=== PATIENT | male | born 1950 | race Caucasian/White ===

== ENCOUNTER 2017-04-21 06:00 | Day surgery (SDC) | payer OTHER, MEDICARE ==
[~2017-04-21] VITALS: Ht 182.9 cm; Wt 124.7 kg
[~2017-04-21 06:00] MED LIST: ADULT LOW DOSE81 MG PO; AMLODIPINE BESYL5 MG PO; BENADRYL25 MG PO; CYMBALTA30 MG PO; CYMBALTA60 MG PO; GABAPENTIN600 MG PO; HYDROCHLOROTHIA25 MG PO; LANTUS SOL100 UNIT/1 SUB-Q; LOSARTAN POTASS50 MG PO; METFORMIN HCL1000 MG PO; PAIN RELIEF500 MG PO; SIMVASTATIN20 MG PO; VITAMIN D1000 UNI1 PO
--- NOTE | 2017-04-21 09:03 | NUR ---
04/21/17 0903 Melanie Rogers 0850- AT BEDSIDE. 0900- AT BEDSIDE.PT AWAKE, PO OK, SAO2 RA 95%.
--- NOTE | 2017-04-21 13:43 | OR ---
[facility] [address] [place], [place] [address] Signed DATE OF OPERATION: SURGEON: Bharath Park MD PREOPERATIVE DIAGNOSES: 1. History of colonic polyps, last colonoscopy 02/12/2016. 2. Chronic alcoholism, in remission. POSTOPERATIVE DIAGNOSES: Recurrent or persistent polyp of proximal ascending colon (complex). PROCEDURE: Total colonoscopy to cecum with complex resection of proximal ascending colon polyp (hot snare, cold morcellation, hot morcellation, mucosal lift, and hemoclip mucosal apposition, prolonged, complicated, and difficult). ANESTHESIA: Propofol infusion, Curt Martins CRNA. INDICATION: A 66-year-old white man is in remission from chronic alcoholism, has other medical issues. He has undergone colonoscopy in the past, last in 2015, where he was noted to have several polyps. He has also had a complex polyp approximately ascending colon, which was excised and marked with Endomark tattoo material. The polyps were tubulovillous adenomas and tubular adenomas. He was admitted at this time to undergo surveillance colonoscopy. Understand the risks of bleeding, infection, and perforation. Propofol infusional sedation is needed as his last procedure was rather prolonged, complicated, and difficult on the basis of his medications, alcohol abuse, and so on. FINDINGS: The prep was adequate, but not great. Complete colonoscopy was undertaken of the cecum. Abdominal wall stabilization was required to obtain full intubation of the cecum. He did have a complex linear polypoid lesion at the area of prior Endomark tattoo dye injection in the proximal ascending colon. This was excised completely with a combination of techniques, which was prolonged, complicated, and difficult. The remaining colon was without signs of recurrent polyp. DESCRIPTION OF PROCEDURE: The patient was brought to the endoscopy suite, placed in lateral decubitus position, given intravenous sedation with propofol infusional technique by the nurse order entry technician with full cardiopulmonary monitoring. Digital rectal examination was normal. Electronically Signed By: BHARATH PARK MD 04/21/17 1343 PATIENT NAME: CINDY WALSH OPERATIVE REPORT DATE OF : 48 PHYSICIAN: BHARATH PARK MD REPORT #: [id number] REPORT IS CONFIDENTIAL AND NOT TO BE RELEASED WITHOUT AUTHORIZATION [facility] [address] [place], [place] [address] Signed An Olympus video colonoscope was passed in the rectum and manipulated throughout the colon. Passage beyond hepatic flexure, required abdominal wall stabilization, but ultimately it was accomplished and passage to the cecum was noted. The prep was adequate, but not great. Irrigation was undertaken as necessary. The ileocecal valve appeared normal. Scope was withdrawn in a short distance from it in the proximal ascending colon and was area of Endomark tattoo dye injection with a recurrent or persistent broad polyp on the mucosal fold. A combination of techniques was used to excise the polyp fully, this started with a submucosal injection technique with Endomark tattoo dye (mucosal lift technique). Hot snare polypectomy was then undertaken judiciously. The friability of the polyp allowed for the snare to pass through without cautery on numerous occasions. There was still some mucosal polypoid material and therefore, cold morcellation polypectomy was undertaken to obliterate this more. Hot morcellation biopsy also was used to clean up the area. Ultimately, the polyp appeared to be completely obliterated. Mucosal defect was reapproximated with two hemoclips and then a Alvarez Net was used to gather the shards of polypoid material. The scope was then withdrawn and remaining colon appeared to be unremarkable. The scope was removed and the patient was taken to recovery room in good condition. CONCLUDING DIAGNOSES: Persistent polyp of proximal ascending colon, not likely malignant, but pathology is pending. We would recommend repeat colonoscopy in one year, sooner if symptoms should develop. Provided the mucosal resection showed benign polyp rather than malignancy or dysplasia. If either of the aforementioned findings are noted then, intervention much sooner would be appropriate. MD YOON Alcantar/SWETAL /[id number] cc: Frankie Patel DO Electronically Signed By: BHARATH PARK MD 04/21/17 1343 PATIENT NAME: CINDY WALSH OPERATIVE REPORT DATE OF : 48 PHYSICIAN: BHARATH PARK MD REPORT #: [id number] REPORT IS CONFIDENTIAL AND NOT TO BE RELEASED WITHOUT AUTHORIZATION
== END 2017-04-21 09:20 | disposition home or self-care (01) ==
LOC: OPS 06:00 → DS 06:00 → OPS 06:45 → DS 08:30 → OPS 08:30
PROVIDERS: Surgery
PROC: 3E0H8GC Introduction of Other Therapeutic Substance into Lower GI, Via Natural or Artificial Opening Endoscopic (ICD-10-PCS; 2017-04-21)
PROC: 0DBK8ZX Excision of Ascending Colon, Via Natural or Artificial Opening Endoscopic, Diagnostic (ICD-10-PCS; principal; 2017-04-21 06:45)
DX: Z12.11 Encounter for screening for malignant neoplasm of colon (principal); D12.2 Benign neoplasm of ascending colon; F10.21 Alcohol dependence, in remission; E78.5 Hyperlipidemia, unspecified; K21.9 Gastro-esophageal reflux disease without esophagitis; F41.9 Anxiety disorder, unspecified; E11.9 Type 2 diabetes mellitus without complications; F32.9 Major depressive disorder, single episode, unspecified; E66.01 Morbid (severe) obesity due to excess calories; G47.30 Sleep apnea, unspecified; Z87.891 Personal history of nicotine dependence; Z86.010 Personal history of colon polyps; Z99.81 Dependence on supplemental oxygen; Z68.37 Body mass index [BMI] 37.0-37.9, adult; Z98.890 Other specified postprocedural states; Z79.899 Other long term (current) drug therapy
CPT/HCPCS: 88305; 99156; 99157; J2370; J2704; J7120

== ENCOUNTER 2018-05-25 05:55 | Day surgery (SDC) | payer OTHER, MEDICARE ==
[~2018-05-25] VITALS: Ht 182.9 cm; Wt 127.0 kg
[~2018-05-25 05:55] MED LIST changes: +AMITRIPTYLINE100 MG PO
--- NOTE | 2018-05-25 08:46 | NUR ---
05/25/18 0846 Ashtyn Hogan 0836- PT ARRIVES TO PACU AROUSABLE TO VOICE, INSTANTLY BACK TO SLEEP. RESP EVEN AND UNLABORED. OXYGEN SAT HIGH 90'S TO 100% ON 6L VIA MASK. 0839- PT IS TRYING TO TURN HIMSELF TO HIS BACK. PT ASSISTED WITH THIS. OXYGEN TURNED OFF. OXYGEN SAT MID TO HIGH 90'S ON RA. 0842- CO2 MONITOR PLACED PT REMAINS SLEEPY AND HAS A HX OF SLEEP APNEA.
--- NOTE | 2018-05-26 11:06 | OR ---
[facility] [address] [place], [place] [address] Signed DATE OF OPERATION: 05/25/2018 SURGEON: Bharath Park MD PREOPERATIVE DIAGNOSIS: History of villoglandular polyp of cecal area 2018 with high-grade dysplasia. POSTOPERATIVE DIAGNOSES: 1. Persistent polypoid tissue at proximal ascending colon. 2. Distant polyps x2, hepatic flexure. PROCEDURE: 1. Total colonoscopy to cecum with hot snare polypectomy and ablation of proximal ascending colon polyp. 2. Cold snare polypectomy x1, hepatic flexure, and cold morcellation polypectomy x1, hepatic flexure. ANESTHESIA: Intravenous sedation, propofol infusion. Arin Perez CRNA. DESCRIPTION OF PROCEDURE: The patient was brought to the endoscopy suite and placed in lateral decubitus position given intravenous sedation by the rail car unloader with propofol infusional technique. Full cardiopulmonary monitoring was maintained. Given his sleep apnea, a fair amount of effort was needed to maintain a good airway and ventilation. Digital rectal examination showed poor tone, but no overt signs of incontinence. The Olympus video colonoscope was passed in the rectum and manipulated throughout the colon. Passage beyond hepatic flexure were slightly challenging, but ultimately was accomplished to the cecum itself. Irrigation was undertaken. The prep was adequate, but not perfect. Modification in the future will be needed. The scope was withdrawn and in the proximal ascending colon was area of prior tattoo marking and a linear appearing polyp. A hot snare polypectomy excision was undertaken and the tissue behind the fold showed more similar such tissue. This was excised with hot morcellation technique as well as cold biopsy technique as well. Ablation of the lesion was accomplished. Good specimens were obtained. Irrigation was undertaken showing no sign of bleeding. The scope was withdrawn and a small polyp at the hepatic flexure was identified and excised with cold snare polypectomy technique. Further withdrawal showed another small polyp excised at this time with cold morcellation technique. Further withdrawal of scope showed no other concerning lesions. It was Electronically Signed By: BHARATH PARK MD 05/26/18 1106 PATIENT NAME: CINDY WALSH OPERATIVE REPORT DATE OF : 48 REPORT #: [id number] PHYSICIAN: BHARATH PARK MD PCP: RAMONA GERARDO PA-C REPORT IS CONFIDENTIAL AND NOT TO BE RELEASED WITHOUT AUTHORIZATION [facility] [address] [place], [place] [address] Signed noted that in the rectosigmoid was a bright, reddish, small polyp, but was not seen upon return of the scope, likely to be seen in the future. He was taken to recovery room in good condition. CONCLUDING DIAGNOSIS: Persistence of proximal ascending colon polyp. Previous villoglandular adenoma with high-grade dysplasia. Ablative efforts have been undertaken. Right colectomy would be a consideration. However, he does have significant comorbidities and if an endoscopic control approach was possible would be preferable obviously. We will await pathology report in particular to see if there is any sign of invasion to mandate colectomy. Would recommend repeat colonoscopy in 6 months given the findings at the proximal ascending colon. Recommend also a more lengthy low-fiber interval for bowel prepping. MD YOON Alcantar/KHADIJAH /[id number] cc: Ramona Gerardo PA-C Copies: RAMONA GERARDO PA-C ~ Electronically Signed By: BHARATH PARK MD 05/26/18 1106 PATIENT NAME: CINDY WALSH OPERATIVE REPORT DATE OF : 48 REPORT #: [id number] PHYSICIAN: BHARATH PARK MD PCP: RAMONA GERARDO PA-C REPORT IS CONFIDENTIAL AND NOT TO BE RELEASED WITHOUT AUTHORIZATION
--- NOTE | 2018-05-26 13:15 | EKG ---
[facility] [address] [facility] [place] [address] Signed Normal sinus rhythm Low voltage QRS Possible Anterolateral infarct (cited on or before 03-APR-2017) Abnormal ECG When compared with ECG of 03-APR-2017 11:48, VA interval has decreased Questionable change in initial forces of Lateral leads Confirmed by JONNY GUERRERO MD ([id number]) on 05/26/2018 1:15:22 PM Electronically Signed By: JONNY GUERRERO MD 05/26/18 1315 PATIENT NAME: NICOCINDY CHAPIN Electrocardiogram DATE OF : 48 PHYSICIAN: JONNY GUERRERO MD REPORT #: [id number] REPORT IS CONFIDENTIAL AND NOT TO BE RELEASED WITHOUT AUTHORIZATION
== END 2018-05-25 09:15 | disposition home or self-care (01) ==
LOC: DS 05:55 → OPS 05:55 → DS 06:45 → OPS 09:15
PROVIDERS: Surgery
PROC: 0D5K8ZZ Destruction of Ascending Colon, Via Natural or Artificial Opening Endoscopic (ICD-10-PCS; 2018-05-25)
PROC: 0DBL8ZZ Excision of Transverse Colon, Via Natural or Artificial Opening Endoscopic (ICD-10-PCS; principal; 2018-05-25 06:45)
DX: D12.2 Benign neoplasm of ascending colon (principal); D12.3 Benign neoplasm of transverse colon; I12.9 Hypertensive chronic kidney disease with stage 1 through stage 4 chronic kidney disease, or unspecified chronic kidney disease; E11.22 Type 2 diabetes mellitus with diabetic chronic kidney disease; N18.9 Chronic kidney disease, unspecified; K21.9 Gastro-esophageal reflux disease without esophagitis; E66.9 Obesity, unspecified; F41.9 Anxiety disorder, unspecified; E78.5 Hyperlipidemia, unspecified; E11.42 Type 2 diabetes mellitus with diabetic polyneuropathy; G47.30 Sleep apnea, unspecified; F17.210 Nicotine dependence, cigarettes, uncomplicated; F17.220 Nicotine dependence, chewing tobacco, uncomplicated; Z79.899 Other long term (current) drug therapy; Z79.82 Long term (current) use of aspirin; Z79.4 Long term (current) use of insulin; Z68.37 Body mass index [BMI] 37.0-37.9, adult; Z79.84 Long term (current) use of oral hypoglycemic drugs; Z86.010 Personal history of colon polyps; Z99.89 Dependence on other enabling machines and devices
CPT/HCPCS: 93005; 93010; J2250; J2704; J3010; J7120

== ENCOUNTER 2023-09-20 06:57 | Day surgery (SDC) | payer OTHER ==
[2023-09-13 14:38] VITALS: BP 120/75
[~2023-09-20] VITALS: Ht 182.9 cm; Wt 111.4 kg
[~2023-09-20 06:57] MED LIST changes: +LACTATED RINGER'S 1,000 ML IV SCH; +LANTUS100 UNITS/ SUB-Q; +TRAMADOL HCL50 MG PO
[2023-09-20] MEDS ORDERED: IBLOOD GLUCOSE TEST STRIP 1 EA TEST VI PRN (07:00)
[2023-09-20] MEDS ORDERED: LIDOCAINE HCL 1% 5 ML SDV INJ ONE (07:00)
[2023-09-20 07:06] VITALS: BP 128/73
[2023-09-20] MEDS ORDERED: JARDIANCE25 MG PO (07:09)
[2023-09-20] MEDS ORDERED: propofoL 200 MG/20 ML VIAL ONE (08:13)
[2023-09-20] MEDS ORDERED: LIDOCAINE HCL 2% 5 ML SDV ONE (08:13)
[2023-09-20] MEDS ORDERED: KETAMINE in NS 50 MG/5 ML SYR ONE (08:41)
[2023-09-20] MEDS ORDERED: fentaNYL citrate 100 MCG/2 ML VIAL ONE (08:46)
--- NOTE | 2023-09-20 09:11 | NUR ---
09/20/23 0911 Marita Posada 0905-PATIENT ARRIVED TO PACU ON RA RR EVEN. PATIENT REACTIVE TO VERBAL STIMULI DENIES PAIN OR NAUSEA. ORIENTED TO PACU. REPOSITIONS SELF IN BED. HOB ELEVATED. SINUS RHYTHM. IVF INFUSING. ENCOURAGED TO PASS GAS
[2023-09-20 09:30] VITALS: BP 122/75
--- NOTE | 2023-09-20 10:43 | OR ---
[facility] [address] [place], [place] [address] Signed DATE OF OPERATION: 09/20/2023 SURGEON: Anne Shell MD PREOPERATIVE DIAGNOSES: 1. Personal history of colonic polyps. 2. Tattoo in right colon. 3. Mother with colon cancer in her 50s. POSTOPERATIVE DIAGNOSES: 1. Long redundant colon. 2. Moderate internal hemorrhoids. 3. Moderately poor bowel prep. PROCEDURE: Colonoscopy without biopsies to the hepatic flexure. ESTIMATED BLOOD LOSS: None. 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 He has been through four colonosc[address] Dr. Blanton. He has had multiple adenomatous polyps removed. There was a large tubulovillous adenomatous polyp removed out of the right colon. The tattoo remains in the right colon. He said he is doing fine currently without any specific lower GI complaints. His mother had been diagnosed and of colon cancer in her 50s. Cindy had a gastric band placed in 2006. He started it about 376 pounds and is down to around 253 pounds. Nevertheless, he remains a very large man and with very large protuberant abdomen. There was also some concern about his thrombocytopenia related to alcohol use. There was some talk he would have an ultrasound of his liver performed. We can see the last colonoscopy was in 2019 at the age of 67. He came to the office by himself. He has to use a four wheeled walker because of his diabetic peripheral neuropathy. He also has to wear gloves on his hand for the same reason. He said he can still drive. He told me his would help take him home after the procedure. In the office, I had given him a pamphlet on colonoscopy. We had reviewed the nature of the test. There is risk including, but not limited to gas bloating, crampy abdominal pain, bleeding, perforation requiring surgery, and missed diagnosis. We also reviewed the written instructions for bowel prep line by line. He recognized that our bowel prep is very similar to what Dr. Blanton uses as well. Being a registered nurse, he is very familiar with Dulcolax and MiraLAX. We had Electronically Signed By: ANNE SHELL MD 09/20/23 1043 PATIENT NAME: CINDY WALSH OPERATIVE REPORT DATE OF : 48 REPORT #: [id number] PHYSICIAN: ANNE SHELL MD PCP: CHARLES CARRASCO MD REPORT IS CONFIDENTIAL AND NOT TO BE RELEASED WITHOUT AUTHORIZATION [facility] [address] [place] [id number] Signed reviewed his medications very carefully as well. He has always required monitored anesthesia care and that is true in this setting given his rather large size and advanced medical issues. He understands an adult person has to take him home afterwards. He had expressed understanding and wished to proceed. DESCRIPTION OF PROCEDURE: Cindy was taken into our endoscopy suite and placed in the left lateral decubitus position. He was initially given monitored anesthesia care with propofol infusion per our nurse dye colorist formulator. A digital rectal exam was performed. No external hemorrhoids. He had good sphincter tone. There were no masses. I could barely touch the bottom of his prostate gland given his size. The adult colonoscope was introduced and we took a few minutes to suction out liquid stool from the rectum. We went up to a long and very redundant left colon. We had to add ketamine along with fentanyl to our propofol infusion. That did help him. We eventually made it to the hepatic flexure. We had three nurses applying abdominal compression in various parts of his rather large protuberant abdomen. Unfortunately, we never could make scope any further. Given all the stool on the bed and his very large size, we elected not to rotate him during this current procedure. The scope was then slowly withdrawn. We saw no pathology throughout the colon including diverticulosis. Once in the rectum, the scope was retroflexed and he does have moderate internal hemorrhoid columns. After this, the gas was suctioned out and the colonoscope removed. Cindy tolerated the procedure quite well. RECOMMENDATIONS: I will see Cindy back in my office in 7 to 14 days to review his results. He will always need a full gallon of polyethylene glycol in the future. He will always need monitored anesthesia care. He is going to need a barium enema to evaluate the right colon on this occasion. Given his previous personal history of adenomatous polyps, he is going to need to stay on at least the five year rotation. MD ABRAHAM Campos/SWETAL /[id number] cc: [facility] in [place] Electronically Signed By: ANNE SHELL MD 09/20/23 1043 PATIENT NAME: CINDY WALSH OPERATIVE REPORT DATE OF : 48 REPORT #: [id number] PHYSICIAN: ANNE SHELL MD PCP: CHARLES CARRASCO MD REPORT IS CONFIDENTIAL AND NOT TO BE RELEASED WITHOUT AUTHORIZATION [facility] [address] [place], [place] [address] Signed [facility] in [place] Copies: ~ Electronically Signed By: ANNE SHELL MD 09/20/23 1043 PATIENT NAME: INCOCINDY CHAPIN OPERATIVE REPORT DATE OF : 48 REPORT #: [id number] PHYSICIAN: ANNE SHELL MD PCP: CHARLES CARRASCO MD REPORT IS CONFIDENTIAL AND NOT TO BE RELEASED WITHOUT AUTHORIZATION
== END 2023-09-20 09:40 | disposition home or self-care (01) ==
LOC: DS 06:57
PROVIDERS: ATTEND Colon & Rectal Surgery
PROC: 0DJD8ZZ Inspection of Lower Intestinal Tract, Via Natural or Artificial Opening Endoscopic (ICD-10-PCS; principal; 2023-09-20 08:15)
DX: K63.89 Other specified diseases of intestine (principal); K64.8 Other hemorrhoids; E66.9 Obesity, unspecified; E11.42 Type 2 diabetes mellitus with diabetic polyneuropathy; E11.22 Type 2 diabetes mellitus with diabetic chronic kidney disease; I12.9 Hypertensive chronic kidney disease with stage 1 through stage 4 chronic kidney disease, or unspecified chronic kidney disease; N18.32 Chronic kidney disease, stage 3b; G47.33 Obstructive sleep apnea (adult) (pediatric); Z68.34 Body mass index [BMI] 34.0-34.9, adult; Z80.0 Family history of malignant neoplasm of digestive organs; Z86.010 Personal history of colon polyps
CPT/HCPCS: J2001; J2704; J3010; J3490; J7121